=== PATIENT | male | born 1960 | race Caucasian/White ===

== ENCOUNTER 2021-07-20 08:09 | Day surgery (SDC) | payer OTHER ==
--- NOTE | 2021-07-18 13:05 | EKG ---
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
[2021-07-20] MEDS ORDERED: Ringers Lactate 1,000 ML IV ONE (08:18)
[2021-07-20] MEDS ORDERED: EPINEPHRINE/PF 1 MG/ML AMP ONE (09:11)
[2021-07-20] MEDS ORDERED: LIDOCAINE 1% W/EPI 1:100,000 MDV 20 ML VIAL ONE (09:12)
[2021-07-20] MEDS ORDERED: MIDAZOLAM HCL 2 MG/2 ML INJ ONE (09:25)
[2021-07-20] MEDS ORDERED: dexAMETHasone 10 MG/ML VIAL ONE (09:25)
[2021-07-20] MEDS ORDERED: propofoL 200 MG/20 ML VIAL IV ONE (09:25)
[2021-07-20] MEDS ORDERED: LIDOCAINE 1% MPF 5 ML VIAL ONE (09:26)
[2021-07-20] MEDS ORDERED: FENTANYL CITR 250 MCG/5 ML ONE (09:26)
[2021-07-20] MEDS ORDERED: ROCURONIUM 50 MG/5 ML VIAL IV ONE (09:28)
[2021-07-20] MEDS ORDERED: EPHEDRINE SULF 50 MG/ML VIAL ONE (10:12)
[2021-07-20] MEDS ORDERED: GLYCOPYRROLATE 0.2 MG/ML SYR ONE (10:40)
--- NOTE | 2021-07-20 11:13 | P.OP ---
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 He underwent bag mask ventilation by the anesthesia team and was noted to be an easy mask ventilation patient. After appropriate planning and communication with the surgical team I resumed control of the patient and his airway. A rubber tooth guard was placed. A Jayashree laryngoscope was used to perform a direct laryngoscopy. The posterior pharyngeal wall, esophageal introitus, arytenoids, vallecula, epiglottis, true and false vocal folds were all unremarkable with no evidence of injury, mass, or other abnormality. The laryngoscope was placed in suspension and a 4 mm rigid endoscope was used to perform a tracheoscopy. The subglottis was unremarkable. The upper cervical trachea demonstrated abnormality with narrowing and an S shaped deformity. The scope was passed past the stenotic portion and the lower portion of the trachea and the right mainstem bronchus were visualized and appeared unremarkable. Due to the clinical findings, I elected not to pursue visualization of the left mainstem bronchus at this time. Photodocumentation was taken. A 6.0 endotracheal tube was passed under direct visualization through the subglottis and trachea. Due to the curvature of the trachea, rotation of the endotracheal tube with the bevel pointing from anterior towards the patient's left side assisted in passing the tube through the narrow aspect of the trachea. The patient was then connected to the anesthesia circuit and administered 100% oxygen while the next step and instrumentation was prepared. A 6/7/8 millimeter esophageal balloon dilation device was prepared. Once the equipment was ready, ventilation was held and the endotracheal tube was removed. The balloon dilation device was passed using rigid endoscopic guidance, through the vocal cords and subglottis to transverse the narrow aspect of the trachea. The balloon was sequentially dilated to 8 mm. At that dilation there was mild play in the tube, and that the diameter of the airway seemed slightly greater than 8 mm. The balloon was deflated and the device removed. The 6.0 endotracheal tube was replaced while the next sizes of balloon dilators were prepared. The suspension was briefly relaxed in order to allow perfusion of the tongue during preparation of additional equipment. The patient was ventilated with 100% oxygen through the endotracheal tube. After equipment preparation, the 6.0 endotracheal tube was removed and balloon dilation was repeated using an 8/10 balloon and a 10/12 balloon. With the balloon dilated to 12, the fit of the balloon felt snug. After dilation, there was no significant bleeding, there was mild erythema of the stenotic portion of the trachea. The 6.0 endotracheal tube was replaced and ventilation was resumed. The next available size of balloon dilation was a 15/18 mm balloon. Consideration was given for additional dilation but given the lack of an interim size from 12 to 15 mm, I elected to avoid additional dilation at this time. I was able under visualization and passed a 7.0 endotracheal tube through the stenotic portion with slight to mild resistance, again finding benefit with rotation of the bevel of the tube towards the left and then towards the right to traverse a somewhat S shaped deformity. The tube was then removed and photodocumentation of the trachea including the stenotic portion was collected. The patient was then reintubated with a 7.0 endotracheal tube. In coordination with the anesthesia team, decision was made to leave the patient intubated during emergence from anesthesia. The endotracheal tube was disconnected from the circuit and the end was grasped with a large cup forcep for stabilization while the Jayashree laryngoscope was carefully withdrawn. The tooth guard was removed and the endotracheal tube was reconnected to the anesthesia circuit. The patient was returned to care of anesthesia for awakening extubation in the operating room which proceeded without difficulty. Complications: None Implants: none Fluids & blood products: See anesthesia record Transferred to: Recovery Room Condition: Good
[2021-07-20] MEDS ORDERED: ONDANSETRON 4 MG/2 ML VIAL ONE (11:26)
[2021-07-20] MEDS ORDERED: NEOSTIGMINE 1 MG/ML -5 ML ONE (12:13)
[2021-07-20 12:32] VITALS: BP 156/90; TEMP 97; O2SAT 99
== END 2021-07-20 11:39 | disposition home or self-care (01) ==
LOC: OR 08:09
PROVIDERS: ATTEND Otolaryngology
PROC: 0B718ZZ Dilation of Trachea, Via Natural or Artificial Opening Endoscopic (ICD-10-PCS; 2021-07-20)
PROC: 0CJS8ZZ Inspection of Larynx, Via Natural or Artificial Opening Endoscopic (ICD-10-PCS; principal; 2021-07-20 11:45)
DX: J39.8 Other specified diseases of upper respiratory tract (principal); Z20.822 Contact with and (suspected) exposure to COVID-19
CPT/HCPCS: 31525; 31630; 93005; U0003; J2704; J2250; J3010; J1100; J2710; J7120; J2405; C1726 ×2; J0171